=== PATIENT | female | born 1965 | race Caucasian/White ===

== ENCOUNTER 2018-04-15 09:25 | Emergency (ER) | payer OTHER ==
[~2018-04-15] VITALS: Ht 177.8 cm; Wt 68.0 kg
[~2018-04-15 09:25] MED LIST: ALBU8HFA2 INH; ALBU90OI6 INH; AMOX500 PO; BECL40OI INH; CIPR500 PO; FLUSAL1005 IH; FLUSAL5005 IH; HYDACE5 PO; METPRE4DP PO; OXYACE5T PO; PRED20 PO; PROCODE120 PO; RXAMOX500 PO; RXHYD5325 PO; TRAM50 PO; ZOLP5 PO
[2018-04-15] MEDS ORDERED: Cleocin HCl300 MG PO (09:57)
== END 2018-04-15 10:05 | disposition home or self-care (01) ==
LOC: ER 09:25
DX: H04.302 Unspecified dacryocystitis of left lacrimal passage (principal); J45.909 Unspecified asthma, uncomplicated; F17.200 Nicotine dependence, unspecified, uncomplicated
CPT/HCPCS: 99282

== ENCOUNTER → 2019-04-06 | Outpatient (CLI) | payer OTHER ==
[~2019-04-06] MED LIST changes: +Cleocin HCl300 MG PO; +FLUT1DIS2; +HTN MEDS; +LIDOCAINE; +PRED20; +Percocet 5-3251 EACH PO
== END | disposition home or self-care (01) ==
LOC: LAB SHORT 09:05 → LAB 09:05
DX: J02.9 Acute pharyngitis, unspecified (principal)
CPT/HCPCS: 87081

== ENCOUNTER 2019-04-10 20:44 | Emergency (ER) | payer OTHER ==
[~2019-04-10] VITALS: Ht 177.8 cm; Wt 68.0 kg
[~2019-04-10 20:44] MED LIST changes: -FLUT1DIS2; -HTN MEDS; -LIDOCAINE; -PRED20; -Percocet 5-3251 EACH PO
[2019-04-10] MEDS ORDERED: HTN MEDS (20:57)
[2019-04-10] MEDS ORDERED: LIDOCAINE (20:57)
[2019-04-10] MEDS ORDERED: FLUT1DIS2 (20:57)
[2019-04-10] MEDS ORDERED: PRED20 (20:57)
[2019-04-11] MEDS ORDERED: Percocet 5-3251 EACH PO (00:24)
== END 2019-04-11 01:51 | disposition home or self-care (01) ==
LOC: ER 20:44
DX: S32.019A Unspecified fracture of first lumbar vertebra, initial encounter for closed fracture (principal); F17.210 Nicotine dependence, cigarettes, uncomplicated; J45.909 Unspecified asthma, uncomplicated; Z88.0 Allergy status to penicillin; Z88.5 Allergy status to narcotic agent; W19.XXXA Unspecified fall, initial encounter
CPT/HCPCS: 72100; 72131; 96372; 99284-25; A9270; J1885